=== PATIENT | male | born 1940 | race Caucasian/White ===

== ENCOUNTER 2022-01-02 10:01 | Outpatient (CLI) | payer MEDICARE, SELFPAY | END 2022-01-02 10:02 | disposition home or self-care (01) | PROVIDERS: PCP Family Medicine; Visit Provider Internal Medicine Gastroenterology | DX: R13.14 Dysphagia, pharyngoesophageal phase (principal); K22.2 Esophageal obstruction; K21.00 Gastro-esophageal reflux disease with esophagitis, without bleeding; K31.89 Other diseases of stomach and duodenum | CPT/HCPCS: 43239; 43248; 45378; 88305; 99153; J2250; J3010 ==

== ENCOUNTER 2025-01-21 11:38 | Outpatient (CLI) | payer MEDICARE, SELFPAY | END 2025-01-21 11:39 | disposition home or self-care (01) | LOC: AMB 01-23 00:44 | PROVIDERS: PCP Family Medicine; Visit Provider Emergency Medicine Emergency Medical Services | DX: I49.9 Cardiac arrhythmia, unspecified (principal) | CPT/HCPCS: A0425; A0427 ==

== ENCOUNTER 2025-01-21 12:15 | Emergency (ER) | payer MEDICARE, SELFPAY ==
[2025-01-21] VITALS (11 sets, daily range): BP systolic 84–107; BP diastolic 68–85; PULSE 85–114; RESP 9–29; TEMP 36.8; O2SAT 97–99; BMI 26.4
--- OUTSIDE RECORDS SUMMARY | 2025-01-21 12:17 | XMS_ITS | Clinical Summary ---
Author Organization [employer] [facility] Address [address] [place] [address] Care Team Providers Care Sleep Tech Name Role Phone Yehuda Shah MD Primary Care Provider + Allergies Active Allergy Reactions Criticality Noted Date Comments Oxycodone Other - Describe In Comment Field Hiccups Medications fish oil-omega-3 fatty acids (FISH OIL) 1,200-360 mg cap Take 1 capsule by mouth once daily. One capsule is 1200 mg-360 mg Active apixaban (Eliquis) 5 mg tabletIndications: Atherosclerosis of [place] coronary artery of [place] heart without angina pectoris,S/P cardiac pacemaker procedure,S/p TAVR (transcatheter aortic valve replacement), bioprosthetic,Linda pheral vascular disease,Glucose intolerance,Atrial flutter, unspecified type (HC),HTN (hypertension),Mix ed hyperlipidemia,Mob sommer type 2 second degree AV block Take 1 Tablet (5 mg) by mouth two times daily. One year authorized. Will call when needed 180 Tablet 3 08/21/19 25 Active fluticasone (50 mcg per actuation) nasal solution (FLONASE)Indicatio ns:Dysfunction of left eustachian tube Inhale 1 Sublimity into affected nostril(s) two times daily. 16 g 3 12/27/19 25 Active CPAPIndications:OS A (obstructive sleep apnea) RESMED CPAP (E0601) machine for home use at pressure: 6-15cmw, Choice of mask (A7030 or A7034) w/full face cushion (A7031) x1/mo, nasal cushion (A7032) x2/mo, or nasal pillows (A7033) x 2/mo; Length of Need: 99 months; Frequency of use: Daily 1 Each 01/07/20 25 Active rosuvastatin (CRESTOR) 20 mg tabletIndications: Mixed hyperlipidemia Take 1 Tablet (20 mg) by mouth at bedtime. 90 Tablet 01/07/20 25 Active omeprazole (PRILOSEC) 20 mg Delayed-Release capsuleIndications :Dysphagia, unspecified type,Stricture and stenosis of esophagus,Esophagi tis Take 1 Capsule (20 mg) by mouth once daily before a meal. 90 Capsule 01/07/20 25 Active NIFEdipine (PROCARDIA XL) 60 mg extended-release tabletIndications: Hypertension, unspecified type Take 1 Tablet (60 mg) by mouth once daily before a meal. 90 Tablet 01/07/20 25 Active metoprolol succinate SR (TOPROL XL) 200 mg Sustained-Release tabletIndications: Essential hypertension Take 1 Tablet (200 mg) by mouth once daily. Schedule cardiology appointment with [facility] for further refills. 90 Tablet 01/07/20 25 Active lisinopriL (PRINIVIL; ZESTRIL) 40 mg tabletIndications: Essential hypertension Take 1 Tablet (40 mg) by mouth once daily. 90 Tablet 01/07/20 25 Active hydroCHLOROthiazid e 25 mg tabletIndications: Essential hypertension Take 1 Tablet (25 mg) by mouth once daily. 90 Tablet 01/07/20 25 Active amoxicillin 500 mg capsuleIndications :S/p TAVR (transcatheter aortic valve replacement), bioprosthetic Take 2000 mg (4 capsules) 30 -60 minutes prior to any dental procedure. 4 Capsule 5 01/07/20 25 Active CPAPIndications:OS A (obstructive sleep apnea) CPAP machine for home use at pressure: 5-15 cmw , Heated humidifier x 1 q 5 yr, Humidifier chamber x 1 q 6 mo, nasal face mask x1 q 3mos, with pillows x 2 q mo, Heated tubing x 1 q 3 mo, Headgear x 1 q 6 mo, chinstrap x1 q 3 mo Filters: Disposable x 2 q mo non-disposable filters x1 q 6mo, Length of Need: 99 months, Frequency of use: Daily 1 Device 09/17/19 025 Discontin ued(*Med complete/ Regimen complete/ Level of care change) hydroCHLOROthiazid e 25 mg tabletIndications: Essential hypertension Take 1 Tablet (25 mg) by mouth once daily. 90 Tablet 3 01/02/20 Discontin ued(Reord er (E-cancel not sent)) lisinopriL (PRINIVIL; ZESTRIL) 40 mg tabletIndications: Essential hypertension Take 1 Tablet (40 mg) by mouth once daily. 90 Tablet 3 01/02/20 24 025 Discontin ued(Reord er (E-cancel not sent)) metoprolol succinate SR (TOPROL XL) 200 mg Sustained-Release tabletIndications: Essential hypertension Take 1 Tablet (200 mg) by mouth once daily. Schedule cardiology appointment with [facility] for further refills. 90 Tablet 3 01/02/20 24 Discontin ued(Reord er (E-cancel not sent)) omeprazole (PRILOSEC) 20 mg Delayed-Release capsuleIndications :Dysphagia, unspecified type,Stricture and stenosis of esophagus,Esophagi tis Take 1 Capsule (20 mg) by mouth once daily before a meal. 90 Capsule 3 01/02/20 24 Discontin ued(Reord er (E-cancel not sent)) rosuvastatin (CRESTOR) 20 mg tabletIndications: Mixed hyperlipidemia Take 1 Tablet (20 mg) by mouth at bedtime. 90 Tablet 3 01/02/20 Discontin ued(Reord er (E-cancel not sent)) amoxicillin 500 mg capsuleIndications :S/p TAVR (transcatheter aortic valve replacement), bioprosthetic Take 2000 mg (4 capsules) 30 -60 minutes prior to any dental procedure. 4 Capsule 5 01/02/20 24 025 Discontin ued(Reord er (E-cancel not sent)) NIFEdipine 60 mg extended-release tabletIndications: HTN (hypertension) Take 1 Tablet (60 mg) by mouth once daily before a meal. 90 Tablet 3 08/14/19 025 Discontin ued(Reord er (E-cancel not sent)) ciprofloxacin-dexA METHasone (CIPRODEX) otic suspensionIndicati ons:Acute otitis externa of both ears, unspecified type Place 4 Drops into both ears two times daily. For one week. 7.5 mL 12/02/19 25 025 Discontin ued(*Med complete/ Regimen complete/ Level of care change) Active Problems Patient Care Coordination No te Formatting of this note migh t be different from the original. HF/Structural Research Eligibility Review Date: 02/04/19 Upcoming Visit Location: [facility] Age: 78 y.o. Insurance: [place] by Choice/Medicare Etiology: NYHA: II Last HF Admit: Last RHC: BNP: 93 02/27/18 EF: 60 01/28/19 LVID: 4.9 Valve/Imaging: No mod-sev disease Cardiac Devices: TAVR (2017), PPM Comments: HF: FID: No dt BNP/hosp Guide-HF: No dt BNP/hosp Reduce LAP: Potential Accucinch 5017: No dt NYHA, LVID Vivio: No recent/upcoming echo Structural: Alt Ariel: Needs RHC Prevention: Prominent: No DM II KPL/Rhapsody: No recurrent pericarditis Problem Noted Date Diagnosed Date Stage 3 chronic kidney disea se, unspecified whether stage 3a or 3b CKD 01/06/2025 Stricture and stenosis of esophagus 01/04/2022 Overview (01/04/2022): EGD 12/2021 stricture dilated with 42 F, 45 F, 48 follow Savory dilator, stay on [employer] INHIB[employer]OR for life Atrial flutter, unspecified type 09/29/2021 Adenomatous colon polyp 08/28/2018 Overview (08/28/2018): Colonoscopy 08/2018 several polyps, repeat in 3 years LIBAN 04/23/2018 AHI/RDI:23 05/02/2018 S/P aortic valve replacement 04/08/2018 S/p TAVR (transcatheter aort ic valve replacement), bioprosthetic 04/08/2018 Renal lesion 03/27/2018 Overview (03/27/2018): CTA chest abdomen pelvis overread (02/27/2018): Indeterminate 10 mm lesion in the lateral mid left kidney which has a density greater than expected for a simple cyst. Recommend ultrasound for further evaluation. Pulmonary nodule 03/27/2018 Overview (03/27/2018): CTA chest abdomen pelvis overread (02/27/2018): Indeterminate 8 mm nodule in the right upper lobe. Per Fleischner guidelines, recommend follow-up in 6 months. Unexplained syncope on 08/16/2015 11/25/2015 S/P implantation of dual jaylene mber permanent pacemaker on 11/25/2015 11/25/2015 Essential hypertension 08/31/2015 Enlarged ascending aorta on stress echo 04/2007 1 Glucose intolerance (impaired glucose tolerance) 01/21/2010 Dysplastic nevus 02/23/2009 ASHD - False (+) stress echo 04/16 => Mild Nonobstructive CAD on angio w (-)FFR LCX 04/18/2007 HYPERLIPIDEMIA + LOW HDL +NORMAL Lpa-14 + NL Vit D 04/18/2007 Personal history of tobacco use, presenting hazards to health 04/18/2007 PERIPHERAL ARTERIAL DISEASE--s/p L SFA CORRECTIONAL MEDICINE PHYSICIAN 04/18/2007 Resolved Problems Problem Noted Date Diagnosed Date Resolved Date Severe aortic stenosis by ec hocardiogram - pk jitendra 4.0 in 03/201602/12/2017 02/08/2023 Overview (02/18/2018): -peak velocity 5.18 m/s, mean gradient 62.3 mmHg, MARY 0.816 cm2 on echo 02/06/2018 Nonrheumatic aortic valve stenosis 02/07/2017 02/12/2017 Mobitz type 2 second degree AV block noted on Holter on 08/17/2015 11/25/2015 02/08/2023 Essential hypertension 08/31/201502/07 Unspecified essential hypertension 04/18/2007 01/20/2010 Unspecified essential hypertension 11/05/2006 02/12/2017 Encounters Date Type Department Care Team Description 01/08/2025 10:53 AM CDT - 01/08/2025 11:59 PM CDT Hospital Encounter [facility], [facility] [address] [place] [address] Votel, MD Maggy Bazzi Joshua, PT 01/08/2025 Travel 01/06/2025 1:15 PM CDT Office Visit [facility] [address] [place] [address] Yehuda Shah MD Medicare ANNUAL (subsequent) Visit (84 year old male); Immunization/Injectio n 01/06/2025 10:30 AM CDT Office Visit [facility] [address] [place] [address] Salinas Miller MD Sleep Follow-up 01/06/2025 Travel 01/05/2025 Orders Only [facility] Scanner 1 scan: (1-Ord) RESMED, COMPLIANCE REPORT, 01/05/2025 12/30/[address] [address] Salinas Miller MD DME Supply (CPAP); Appointment (follow up) 12/25/2024 4:00 PM CDT Office Visit [facility] [place] [place] [address] [place] [address] Kavitha Jones PA Consult 12/25/2024 Telephone [facility] [address] [place] [address] Megha Godfrey NP Form (Prescription Request // C-Pap Supplies/) 12/24/2024 12:30 PM CDT Office Visit [facility] [address] [place] [address] Darius Whittaker, AuD Hearing Aid (Consultation) 12/24/2024 11:00 AM CDT Office Visit [facility] [address] [place] [address] Darius Whittaker, AuD Hearing Problem 12/24/[address] [address] Darius Whittaker, AuD Hearing Loss 12/24/2024 Travel 12/22/2024 Telephone [facility] [address] [place] [address] [address] Megha Godfrey, WASTEWATER PLANT OPERATOR Refill Request (CPAP) 12/10/2024 10:00 AM CDT Office Visit [facility] [address] [place] [address] Yehuda Shah MD Follow Up (Ear discomfort in left ear, hard of hearing, new hearing aids that squeek) 12/10/2024 Travel 12/02/2024 Telephone [facility] [address] [place] [address] Nick Conklin MD Prior Authorization (ciprofloxacin-dexAME THasone (CIPRODEX) otic suspension DENIED) 12/01/2024 1:15 PM CDT Office Visit [facility] [address] [place] [address] Nick Conklin MD Ear Problem (Bilateral ear discomfort, left ear worse, started 3 days) 12/01/2024 Travel from Last 3 Months Immunizations Immunization Administration Dates Next Due COVID-19 vaccine (Sendia-Bio NTech 30mcg/0.3mL) 12YO+ BIVALENT PF, MDV 01/23/2022 COVID-19 vaccine (Sendia-Bio NTech 30mcg/0.3mL) PF, MDV 06/07/2020,05/17/2020 Influenza A (H1N1), Inactivated 03/10/2009 Influenza A (H1N1), Inactiva nan (Age >=3 Years) 03/10/2009 Influenza, High-dose Inactivated 02/28/2016,02/07 Influenza, IIV3 (Age >=3 years) 01/08/20 13,01/08/2012,01/02/2011,01/07 Influenza, IIV4 01/12/2014,01/13/2013,03/10/2009 Influenza, Inactivated AIIV4 (Age 65+ Years) Preserv Free 02/08/2023,01/23/2022,01/25/2021,02/04 Influenza, Inactivated IIV3 (Age 65+ Years) Preserv Free 01/06/2025,01/02/2024,01/29/2019,02/07,02/07/2017 Pneumococcal Poly,23-Valent (Pneumovax) 01/20/2010 Pneumococcal conj 13-Valent (Prevnar 13) 02/16/2014 RSV, Recombinant ADJ Reconst ituted (Arexvy 120MCG/0.5mL) 02/17/2023 Td (Age >=7 Years) 09/01/2003 Tdap 01/27/2011 Zoster (Shingrix-RZV, recombinant) 04/18/2023, Zoster (Zostavax-ZVL, live) 03/14/2010 Family History Medical History Relation Name Comments Good Health Brother 1 Arthritis Brother 2 Hypertension Father Hypertension Mother Good Health Sister 1 Good Health Sister 2 Good Health Sister 3 Cancer-colon No Family History Cancer-prostate No Family History Relation Name Status Comments Brother 1 Brother 2 Father (Age 87) HTN, TIA Mother (Age 84) HTN Sister 1 Sister 2 Sister 3 Social History Tobacco Use Types Packs/Day Years Used Date Smoking Tobacco: Former Cigarettes 1 30 0 04/09/1967 - 04/09/1997 Cigars Smokeless Tobacco: Never Tobacco Cessation:Counseling Given: Yes Comments:quit cigars 08/24/20 Alcohol Use Standard Drinks/Week Comments Yes 0 (1 standard drink = 0.6 oz pur e alcohol) 7 drinks per week PHQ-2 Answer Date Recorded PHQ-2 TOTAL SCORE 0 01/06/2025 Social Connections Answer Date Recorded Do you often feel lonely or isolated from those around you? 0 08/08/2024 Alcohol Use Answer Date Recorded How often do you have a drink containing alcohol ? 4 01/06/2025 How many drinks containing a lcohol do you have on a typical day when you are drinking? 0 01/06/2025 How often do you have five or more drinks on one occasion? 0 01/06/2025 Financial Resource Strain Answer Date R ecorded Difficulty of Paying Living Expenses 3 08/08/2024 Difficulty of Paying Living Expenses Not on file 08/08/2024 Food Insecurity Answer Date Recorded Do you worry your food will run out before you are able to buy more? 1 08/08/2024 Transportation Needs Answer Date Record ed Does lack of transportation keep you from medica l appointments? 1 08/08/2024 Does lack of transportation keep you from work, meetings or getting things that you need? 1 08/08/2024 Housing Stability Answer Date Recorded What is your housing situation today? 1 08/08/2024 Utilities Answer Date Recorded Do you have trouble paying f or utilities (for example, heat, electricity, water, phone)? 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 Not on file Not on file Not on file Obstetrics History Last Filed Vital Signs Vital Sign Reading Time Taken Comments Blood Pressure 125/62 01/06/2025 1:11 PM CDT Pulse 68 01/06/2025 1:11 PM CDT Temperature 37 C (98.6 F) 01/06/2025 1:11 PM CDT Respiratory Rate 16 12/25/2024 3:38 PM CDT Oxygen Saturation 99% 01/06/2025 1:11 PM CDT Inhaled Oxygen Concentration - - Weight 89.6 kg (197 lb 8 oz) 01/06/2025 1:11 PM CDT Height 180.1 cm (5' 10.9) 01/06/2025 1:11 PM CD T Body Mass Index 27.62 01/06/2025 1:11 PM CDT Plan of Treatment Upcoming Encounters Date Type Department Care Team (Late st Contact Info) Description 01/26/2025 1:00 PM CDT Appointment [facility] [place] [address] [place] [address] Alex Winter, PT [address] [place] [address] 02/04/2025 10:30 AM CDT Appointment [facility] [place] [address] [place] [address] Alex Winter, PT [address] [place] [address] 02/10/2025 11:15 AM SECY Appointment [facility] [place] [address] [place] [address] Alex Winter, PT [address] [place] [address] 02/17/2025 11:15 AM SECY Appointment [facility] - [facility], [facility] [address] [place] [address] Alex Winter, PT [address] [place] [address] 02/19/2025 Cardiac Device Check [facility] [place] [phone] 04/14/2025 11:00 AM SECY Office Visit [facility] [place] [place] [address] [facility] [place] [place] [address] Samara Montiel, WASTEWATER PLANT OPERATOR [address] [address] Health Maintenance Due Date Last Done Comments Tetanus booster 01/27/2021 01/27/2011, 09/01/2003 COVID-19 vaccine series ( season) 2024 01/23/2022, 01/02/2021, 06/07/2020, Additional history exists BMI (ht and wt on same day) for age 18+ 01/06/2026 01/06/2025, 01/06/2025, 12/10/2024, Additional history exists Depression screening for age 12+ 01/06/2026 01/06/2025, 01/02/2024, 01/02/2024, Additional history exists Medicare Wellness for age 65+ 01/07/2026 01/06/2025, 01/02/2024, 02/08/2023, Additional history exists Pneumococcal series for age 50+ Completed 02/16/2014, 01/20/2010 RSV vaccine for adults or Completed 02/17/2023 Zoster (shingles) series for age 50+ Completed 04/18/2023, 01/22/2023, 03/14/2010 Influenza Vaccine Completed 01/06/2025, , 02/08/2023, Additional history exists Hepatitis B series for 19+ Aged Out N o longer eligible based on patient's age to complete this topic Medical Devices Implanted Type Area Making Machine Catcher Device Identifier Shelf Expiration Date Model / Serial / Lot Standard Pacemaker- 016 Implanted:2015 by Johnathan Guillen MD (Quantity not on file) Standard Pacemaker Medtronic [id number] / [id number] / Valve Aortic 26mm Meliza 3 Transcatheter Sys Commander - [id number] Implanted:Qty: 1 on 03/28/2018 by Juan C Huerta MD at [facility] Left: Aorta [id number] 01/19/2020 [id number] / / Procedures Procedure Name Priority Date/Time Associated Diagnosis Comments CBC WITH AUTO DIFFERENTIAL Routine 01/06/2025 2:33 PM CDT Hypertension, unspecified type LIPID PANEL W REFLEX MEASURED LDL Routine 01/06/2025 2:33 PM CDT HYPERLIPIDEMIA + LOW HDL +NORMAL Lpa-14 + NL Vit D ALT (SGPT) Routine 01/06/2025 2:33 PM CDT HYPERLIPIDEMIA + LOW HDL +NORMAL Lpa-14 + NL Vit D BASIC METABOLIC PANEL Routine 01/06/2025 2:33 PM CDT Hypertension, unspecified type CBC WITH AUTO DIFFERENTIAL Routine 01/06/2025 2:33 PM CDT Hypertension, unspecified type SCAN-DIAGNOSTIC REPORT 01/05/2025 12:00 AM CDT from Last 3 Months Results * (ABNORMAL) CBC WITH AUTO DIFFERENTIAL (01/06/2025 2:33 PM CDT) WHITE BLOOD CELL COUNT 6.1 3.8 - 10.8 Thousand/ uL 01/07/2025 3:47 AM CDT [facility] RED BLOOD CELL COUNT 4.10(L) 4.20 - 5.80 Million/u L 01/07/2025 3:47 AM CDT [facility] HEMOGLOBIN 11.2(L) 13.2 - 17.1 g/dL 01/07/2025 3:47 AM CDT [facility] HEMATOCRIT 35.4(L) 38.5 - 50.0 % 01/07/2025 3:47 AM CDT [facility] MCV 86.3 80.0 - 100.0 fL 01/07/2025 3:47 AM CDT [facility] MCH 27.3 27.0 - 33.0 pg 01/07/2025 3:47 AM CDT [facility] MCHC 31.6(L) 32.0 - 36.0 g/dL 01/07/2025 3:47 AM CDT [facility] Comment: For adults, a slight decrease in the calculated MCHC value (in the range of 30 to 32 g/dL) is most likely not clinically significant; however, it should be interpreted with caution in correlation with other red cell parameters and the patient's clinical condition. RDW 17.4(H) 11.0 - 15.0 % 01/07/2025 3:47 AM CDT [facility] PLATELET COUNT 299 140 - 400 Thousand/ uL 01/07/2025 3:47 AM CDT [facility] MPV 10.0 7.5 - 12.5 fL 01/07/2025 3:47 AM CDT [facility] NEUTROPHILS 60.2 % 01/07/2025 3:47 AM CDT [facility] LYMPHOCYTES 24.8 % 01/07/2025 3:47 AM CDT [facility] MONOCYTES 12.4 % 01/07/2025 3:47 AM CDT [facility] EOSINOPHILS 1.5 % 01/07/2025 3:47 AM CDT [facility] BASOPHILS 1.1 % 01/07/2025 3:47 AM CDT [facility] ABSOLUTE NEUTROPHILS 3672 1500 - 7800 cells/uL 01/07/2025 3:47 AM CDT [facility] ABSOLUTE LYMPHOCYTES 1513 850 - 3900 cells/uL 01/07/2025 3:47 AM CDT [facility] ABSOLUTE MONOCYTES 756 200 - 950 cells/uL 01/07/2025 3:47 AM CDT [facility] ABSOLUTE EOSINOPHILS 92 15 - 500 cells/uL 01/07/2025 3:47 AM CDT [facility] ABSOLUTE BASOPHILS 67 0 - 200 cells/uL 01/07/2025 3:47 AM CDT [facility] Blood BLOOD SPECIMEN / Unknown [facility] / Unknown 01/06/2025 2:33 PM CDT 01/06/2025 2:33 PM CDT us Yehuda Shah MD HEMATOLOGY Final Re sult [facility] [address] [place] [address], [place] [phone] * (ABNORMAL) LIPID PANEL W REFLEX MEASURED LDL (01/06/2025 2:33 PM CDT) CHOLESTEROL, TOTAL 103 <200 mg/dL 01/07/2025 4:17 AM CDT [facility] TRIGLYCERIDES 102 <150 mg/dL 01/07/2025 4:17 AM CDT [facility] HDL CHOLESTEROL 38(L) > OR = 40 mg/dL 01/07/2025 4:17 AM CDT [facility] NON HDL CHOLESTEROL 65 <130 mg/dL (calc) 01/07/2025 4:17 AM CDT [facility] Comment: For patients with diabetes plus 1 major ASCVD risk factor, treating to a non-HDL-C goal of <100 mg/dL (LDL-C of <70 mg/dL) is considered a therapeutic option. CHOL/HDLC RATIO 2.7 <5.0 (calc) 01/07/2025 4:17 AM CDT [facility] LDL-CHOLESTEROL 46 mg/dL (calc) 01/07/2025 4:17 AM CDT [facility] Comment: Reference range: <100 Desirable range <100 mg/dL for primary prevention; <70 mg/dL for patients with CHD or diabetic patients with > or = 2 CHD risk factors. LDL-C is now calculated using the Rip-Renetta calculation, which is a validated novel method providing better accuracy than the Friedewald equation in the estimation of LDL-C. Rip RUIZ et al. MARYAM. 2013;310(19): 4397-1343 (http://education.MyWave.Genscript Technology/faq/ELI027) Blood BLOOD SPECIMEN / Unknown [facility] / Unknown 01/06/2025 2:33 PM CDT 01/06/2025 2:33 PM CDT Yehuda Shah MD CHEMISTRY Final Re sult [facility] [address] [address], * ALT (SGPT) (01/06/2025 2:33 PM CDT) ALT 15 9 - 46 U/L 01/07/2025 4:17 AM CDT [facility] Blood BLOOD SPECIMEN / Unknown [facility] / Unknown 01/06/2025 2:33 PM CDT 01/06/2025 2:33 PM CDT Yehuda Shah MD CHEMISTRY Final Re sult Performing Organization Address [facility] Co de Phone Number [facility] [address] [address], * (ABNORMAL) BASIC METABOLIC PANEL (01/06/2025 2:33 PM CDT) Pathologist [facility] SODIUM 131(L) 135 - 146 mmol/L 01/07/2025 4:17 AM CDT [facility] POTASSIUM 3.9 3.5 - 5.3 mmol/L 01/07/2025 4:17 AM CDT [facility] CARBON DIOXIDE 27 20 - 32 mmol/L 01/07/2025 4:17 AM CDT [facility] GLUCOSE 111(H) 65 - 99 mg/dL 01/07/2025 4:17 AM CDT [facility] Comment: Fasting reference interval For someone without known diabetes, a glucose value between 100 and 125 mg/dL is consistent with prediabetes and should be confirmed with a follow-up test. CALCIUM 9.8 8.6 - 10.3 mg/dL 01/07/2025 4:17 AM CDT [facility] CREATININE 1.22 0.70 - 1.22 mg/dL 01/07/2025 4:17 AM CDT [facility] BUN/CREATININE RATIO 25(H) 6 - 22 (calc) 01/07/2025 4:17 AM CDT [facility] EGFR 59(L) > OR = 60 mL/min/1.7 3m2 01/07/2025 4:17 AM CDT [facility] UREA NITROGEN (BUN) 31(H) 7 - 25 mg/dL 01/07/2025 4:17 AM CDT [facility] ELECTROLYTE BALANCE 10 7 - 17 mmol/L (calc) 01/07/2025 4:17 AM CDT [facility] CHLORIDE 94(L) 98 - 110 mmol/L 01/07/2025 4:17 AM CDT [facility] Blood BLOOD SPECIMEN / Unknown [facility] / Unknown 01/06/2025 2:33 PM CDT 01/06/2025 2:33 PM CDT Yehuda Shah MD CHEMISTRY Final Re sult [facility] [address] [place] [address], * SCAN-DIAGNOSTIC REPORT (01/05/2025 12:00 AM CDT) us Scanner OTHER Final Result from Last [address] [place] [address] BLUE CROSS MEDICARE ADVANTAGE MR MEDICARE PART A HB ONLY [place] [id number] MEDICARE PROVIDER BASED MR [place]ON CROW Advance Directives Documents on File Type Date Recorded Patient Visitor Services Specialist Expl anation Power of Athletic Trainer 12/17/2024 12:59 PM GRACIE R OF MANAGER PLACEMENT Healthcare Directive 12/17/2024 12:58 PM H EALT CARE DIRECTIVE Healthcare Directive 10/09/2008 12:00 AM 10/09/08 * Full Code (Latest Code Status on File) Date Activated Date Inactivated Comments 03/28/2018 7:12 AM 03/29/2018 1:51 PM * Full Code Date Activated Date Inactivated Comments 03/13/2018 7:08 AM 03/13/2018 2:39 PM * Full Code Date Activated Date Inactivated Comments 11/25/2015 9:43 AM 11/26/2015 12:39 PM * Full Code Date Activated Date Inactivated Comments 04/18/2007 9:54 AM 04/19/2007 12:51 AM Care Teams Sleep Tech Relationship Specialty Start Date End Date Votel, Yehuda Jeter MD [address] [place] [address] PCP - General Family Practice 04/22/12
--- NOTE | 2025-01-21 13:43 | ED.GENADULT ---
HPI - General Adult General Chief complaint: Hypotension Stated complaint: Afib Time Seen by Provider: 01/21/25 12:29 History of Present Illness HPI narrative: This 84-year-old male comes in with his daughter. He was at a dental appointment this morning and it was noted that his heart rate was increasing up to 130 beats per minute. He was sent here for further evaluation. He does not report any symptoms of chest pain or lightheadedness. He did not know that he was in atrial fibrillation. 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 He is on Eliquis and takes metoprolol 200 mg daily. He did take his medicines this morning. He arrives here with normal vital signs and has a pulse in the 90s beats per minute. Related Data Home Medications ?Medication ?Instructions ?Recorded ?Confirmed apixaban 5 mg tablet (Eliquis) 5 mg PO BID 01/21/25 01/21/25 hydrochlorothiazide 25 mg tablet 25 mg PO DAILY 01/21/25 01/21/25 lisinopril 40 mg tablet 40 mg PO DAILY 01/21/25 01/21/25 metoprolol succinate 200 mg 200 mg PO DAILY 01/21/25 01/21/25 tablet,extended release 24 hr nifedipine 60 mg tablet,extended 60 mg PO DAILY 01/21/25 01/21/25 release 24 hr omeprazole 20 mg capsule,delayed 20 mg PO 3XD 01/21/25 01/21/25 release rosuvastatin 20 mg tablet 20 mg PO QPM 01/21/25 01/21/25 Allergies Allergy/AdvReac Type Severity Reaction Status Date / Time oxycodone Allergy Mild Rash Verified 01/21/25 13:04 Review of Systems Status of ROS: Reports: 10 or more systems reviewed and unremarkable except as noted in History and below Narrative: Constitutional: No fevers, no weight gain or loss. Eyes: No discharge. No vision changes. HENT: No congestion, no sore throat, no ear pain. Cardiovascular: No chest pain, no palpitations. Respiratory: No shortness of breath, no wheezes, no cough. Gastrointestinal: No abdominal pain, no vomiting, no diarrhea. Genitourinary: No dysuria, no hematuria. Musculoskeletal: Normal range of motion. Skin: No rashes, no pruritis. Neurological: No dizziness, weakness, sensory change, speech change. Endo/Heme/Allergies: No bruising or bleeding. No polydipsia. Pysch: no suicidality, no anxiety, no insomnia. All other systems reviewed and are negative. Exam Narrative: Exam Narrative: Constitutional: Well-developed, well-nourished, no acute distress. HEENT: Normocephalic, atraumatic. Neck: Normal range of motion. Nontender. Supple. Heart: Irregular. No murmurs. Normal rate. Intact distal pulses. Lungs: Clear to auscultation. No chest discomfort. No wheezes, rhonchi, or rales. Abdomen: Normal bowel sounds. Nontender. No rebound tenderness. Genitalia: Deferred. Back: No midline tenderness. Normal range of motion. Extremities: Normal range of motion. No injury. Skin: Intact. No rash. Warm. No erythema or pallor. Neurologic: No altered sensation. No weakness. Alert and oriented. Psychiatric: No suicidality. No anxiety or depression. No insomnia. Nursing notes and vitals signs are reviewed. Const: Vital Signs, click to edit/add: Vital Signs - 24 hr 01/21/25 12:36 01/21/25 12:36 01/21/25 12:37 Temperature 98.2 F Pulse Rate 102 H 101 H Pulse Rate [Pulse Oximeter] 114 H Respiratory Rate 16 Blood Pressure 96/75 Blood Pressure [Ri ght Upper Arm] 96/73 Pulse Oximetry 97 98 97 Oxygen Delivery Me thod Room Air 01/21/25 12:45 01/21/25 12:50 01/21/25 13:00 Temperature Pulse Rate 96 91 103 H Pulse Rate [Pulse Oximeter] Respiratory Rate 15 9 L Blood Pressure 99/68 Blood Pressure [Ri ght Upper Arm] Pulse Oximetry 97 99 98 Oxygen Delivery Me thod 01/21/25 13:02 01/21/25 13:15 01/21/25 13:16 Temperature Pulse Rate 85 100 106 H Pulse Rate [Pulse Oximeter] Respiratory Rate 29 H 16 Blood Pressure 84/72 L 86/71 L Blood Pressure [Ri ght Upper Arm] Pulse Oximetry 99 99 99 Oxygen Delivery Sc thod 01/21/25 13:17 01/21/25 13:30 01/21/25 13:32 Temperature Pulse Rate 108 H 92 96 Pulse Rate [Pulse Oximeter] Respiratory Rate 16 25 H 21 Blood Pressure 107/76 97/85 Blood Pressure [Ri ght Upper Arm] Pulse Oximetry 99 98 99 Oxygen Delivery Me thod Course Vital Signs Vital signs: Initial Vital Signs Temperature 98.2 F 01/21/25 12:36 Temperature Source Temporal Artery Scan 01/21/25 12:36 Pulse Rate 102 H 01/21/25 12:36 Pulse Rhythm Irregular 01/21/25 12:36 Respiratory Rate 16 01/21/25 12:36 Blood Pressure 96/75 01/21/25 12:36 Blood Pressure Mean 82 01/21/25 12:36 Blood Pressure Position Supine 01/21/25 12:36 Pulse Oximetry 97 01/21/25 12:36 Oxygen Delivery Method Room Air 01/21/25 12:36 Vital Signs Temperature 98.2 F 01/21/25 12:36 Pulse Rate 102 H 01/21/25 12:36 Respiratory Rate 16 01/21/25 12:36 Blood Pressure 96/75 01/21/25 12:36 Pulse Oximetry 97 01/21/25 12:36 Oxygen Delivery Method Room Air 01/21/25 12:36 Temperature 98.2 F 01/21/25 12:36 Pulse Rate 96 01/21/25 13:32 Respiratory Rate 21 01/21/25 13:32 Blood Pressure 97/85 01/21/25 13:32 Pulse Oximetry 99 01/21/25 13:32 Oxygen Delivery Method Room Air 01/21/25 12:36 Medical Decision Making MDM Narrative Medical decision making narrative: This patient arrives for evaluation of increased heart rate that was noted while having a dental procedure done prior to arrival here. The patient did not have any symptoms of lightheadedness, shortness of breath, or chest pain. He states that he feels normal other than numbness in his mouth from anesthesia for the dental procedures that were done. EKG on arrival shows atrial fibrillation which is rate controlled. I did review previous records outside of our system which shows that he is in chronic atrial fibrillation. He appears to be on the right medications to manage this chronic condition. He is not having any other symptoms. I did discuss the role of cardioversion but indicated that his chronic condition of atrial fibrillation is adequately managed with anticoagulants and rate controlling medicines. Additionally cardioversion may not be successful in this chronic state. I did discuss other lab and imaging options and in a process of shared decision making the patient and his daughter declined any further treatment at this time. I did advise him to monitor his blood pressure and heart rate and recommended a follow-up with cardiology clinic. He should return if symptoms are recurrent or worsening. ECG Data Attestation: I personally reviewed and interpreted this ECG as follows: Interpretation: Atrial fibrillation, rate 99 beats per minute. There are no specific ST or T-wave abnormalities. Discharge Plan Discharge Clinical Impression: Chronic atrial fibrillation Patient Disposition: Home w/ Parent or Adult Condition: Stable Additional Instructions: Continue current plans. Follow up with cardiology clinic for recheck. Return if symptoms are recurrent or worsening. Prescriptions: No Action metoprolol succinate 200 mg tablet extended release 24 hr 200 mg PO DAILY nifedipine 60 mg tablet extended release 24hr 60 mg PO DAILY omeprazole 20 mg capsule,delayed release(DR/EC) 20 mg PO 3XD hydrochlorothiazide 25 mg tablet 25 mg PO DAILY lisinopril 40 mg tablet 40 mg PO DAILY rosuvastatin 20 mg tablet 20 mg PO QPM Eliquis 5 mg tablet 5 mg PO BID Follow Up/Referrals: Yehuda Shah MD [Primary Care Provider, Family Practice] Stand Alone Forms: [place] Residential Info Instructions
== END 2025-01-21 14:03 | disposition home or self-care (01) ==
LOC: ED 14:04
PROVIDERS: Emergency Provider Emergency Medicine Emergency Medical Services; PCP Family Medicine
DX: I48.20 Chronic atrial fibrillation, unspecified (principal)
CPT/HCPCS: 93005; 94761; 99284